=== PATIENT | male | born 1960 | race Caucasian/White ===

== ENCOUNTER 2025-02-09 17:49 | Inpatient (IN) ==
[2025-02-09 18:19] LABS: Appearance Urine Clear (Clear); Glucose Urine UA Negative (Negative)
[2025-02-09 18:24] LABS: Hematocrit (blood only) 44.0 % (42.0-52.0); Hemoglobin 15.3 g/dl (14.0-18.0); Immature Granulocytes # (auto) 0.05 K/uL (0.01-0.20); Immature Granulocytes % (auto) 0.4 %; Mean Corpuscular Hemoglobin 30.1 pg (25.0-34.0); Mean Corpuscular Volume 86.4 fL (80.0-100.0); Platelet Count 245 K/uL (130-400); RDW Standard Deviation 41.6 fL (36.4-46.3); Red Blood Count 5.09 M/uL (4.70-6.10); White Blood Count 12.46 K/ul (4.8-10.8)
[2025-02-09 18:38] LABS: Alanine Aminotransferase 30.0 U/L (7-52); Albumin Globulin Ratio 1.4 (0.9-2); Alkaline Phosphatase 72.0 U/L (34-104); Anion Gap 11.0 (3-11); Bilirubin,Total 0.8 mg/dl (0.2-1.0); Blood Urea Nitrogen 45.0 mg/dl (6-23); Calcium 9.1 mg/dl (8.6-10.3); Carbon Dioxide 25.0 mmol/L (21-32); Chloride 108.0 mmol/L (98-107); Creatinine Clr Calc Pharmacy 24.4 ml/min; Globulin 3.1 gm/dl (2.5-4.0); Glucose 121.0 mg/dl (70-99(Fasting)); Potassium 3.3 mmol/L (3.5-5.1); Sodium 144.0 mmol/L (136-145); Total Protein 7.4 gm/dl (6.0-8.3)
[2025-02-09] MEDS: LIDOCAINE 2% JELLY 5 ML TUBE EXT ONE (20:16)
--- NOTE | 2025-02-09 20:34 | Emergency Department Note ---
Impression & Plan Acute retention of urine, TELMA (acute kidney injury), Enlarged prostate ED Provider Note ED Provider Note NAME: RENEE CHILEL AGE:64 SEX: Male : 1960 ARRIVES VIA: private vehicle INFORMANT: Patient ED PROVIDER(s): Marine Nathan DO CHIEF COMPLAINT: referred here by PCP HPI: This is a 64-year-old male presents emergency room after being referred here by his PCP due to abnormal outpatient labs. Patient states he had been noticed increased difficulty urinating and saw his PCP and was started on Flomax. He states has been taking the Flomax now for 2 days and feels it is helping. He states his family doctor checked outpatient blood work and he was told that his kidney numbers were very abnormal and she was concerned that he was not emptying the bladder. He denies any sense that he cannot empty the bladder, and states in particular urination has been a lot easier since starting the Flomax. He denies any abdominal pain or distention, increased low back pain, fevers or chills, nausea or vomiting. No prior history of kidney problems. He states he was told to stop taking ibuprofen which he has and when his labs were rechecked today his kidney function hadn't improved. Patient states he does take Eliquis due to history of atrial fibrillation. No recent change in color or odor to his urine. PAST MEDICAL HISTORY:See Below PAST SURGICAL HISTORY:See Below FAMILY HISTORY:See Below SOCIAL HISTORY:See Below HOME MEDICATIONS:See Below ALLERGIES:See Below VITALS:See Below PHYSICAL EXAMINATION: GENERAL: alert, well appearing, well nourished, no distress, non-toxic EYE EXAM: normal conjunctiva, PERRL and EOM's grossly intact OROPHARYNX: no exudate, no erythema, lips, buccal mucosa, and tongue normal and mucous membranes are moist NECK: supple, no nuchal rigidity, no adenopathy, non-tender LUNGS: Clear to auscultation. Normal chest wall mechanics, no w/r/r HEART: no murmurs, S1 normal and S2 normal ABDOMEN: abdomen soft, non-tender, normo-active bowel sounds, no masses, no rebound or guarding. BACK: Back is symmetrical on inspection and there is no deformity, no midline tenderness, no CVA tenderness. SKIN: no rashes, petechiae, orbruising UPPER EXTREMITIES: upper extremities are grossly normal. FROM, nml pulses b/l. LOWER EXTREMITIES: No pitting edema. FROM, nml pulses b/l. NEURO EXAM: Normal sensorium, cranial nerves II-XII grossly intact, normal speech, no facial droop,nogross weakness of arms, no gross weakness of legs. Gross sensation intact. No ataxia. Vital Signs: reviewed and remarkable Differential Diagnosis: TELMA, ureterolithiasis, UTI, pyelo, urinary retention, medication adr, BPH, prostatitis, as well as others were considered MEDICAL DECISION MAKING: This is a 64-year-old male presents emergency department after outpatient labs showed a worsening creatinine. Patient recently started on Flomax due to presumed enlarged prostate contributing to his complaints of difficulty urinating recently. Patient's prior creatinine was 1.6, and prior to that he was normal at 1.0. Labs drawn and sent, IV established, patient monitored on telemetry. Bladder scan showed greater than 1000 mL in the patient's bladder. A catheter was placed with immediate drainage of 1800 mL of clear yellow urine. Patient sent for CT imaging as a precaution. No other obstructive uropathy noted. Patient's creatinine today significantly elevated. At this time I suspect a postobstructive uropathy. Case discussed with hospitalist team for further evaluation and management. I discussed all results with the patient and family at bedside. Vital signs stable throughout. Patient was started on gentle IV fluid hydration. Consultation(s): 2109: Discussed with Dr. Canada, [facility] hospitalist team, for additional evaluation and mgmt. ER Treatment Provided: See below 2111: Monet catheter placed and patient immediately drained 1800 mL of clear yellow urine. Diagnostics Interpreted By Me: -Cardiac Monitoring: An order was placed for continuous cardiac monitoring. The monitor shows a rate of 88 with a.fib rhythm. -Laboratory studies: As stated above and show below. -Imaging studies: ct a/p -no ureterolithiasis, bilateral hydronephrosis seen Triage Nursing Note Reviewed Prior/Outside Records Reviewed Past Med/Surg History Problem List (Updated 02/10/25 @ 16:44 by Marine Ntahan DO) Enlarged prostate (Acute) Dyslipidemia TELMA (acute kidney injury) (Acute) Acute retention of urine (Acute) Medical History HTN (hypertension) with goal to be determined Surgical History Hx of tonsillectomy Family History Brother Heart disease Social History Smoking Status: Never smoker Second Hand Exposure: No; Do You Dip or Chew Tobacco: No; Tobacco Cessation Education Requested by Patient: No Hx Alcohol Use: Yes Alcohol type: beer Hx Substance Use: No Preferred Language: Chilean Communication Ability: Effective 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: No Beliefs That Will Affect Care: None Current Living Situation: Spouse Other Information That Helps Us Care for You: No Feels Safe at Home: Yes Safety Concerns: Feels Safe At This Time Assistive Devices: Contacts and Glasses Assistive Devices Comment: contacts Allergies Allergies Allergy/AdvReac Type Severity Reaction Status Date / Time No Known Allergies Allergy Mild Verified 02/09/25 21:51 Home Meds Home Medications Medication Instructions Recorded Confirmed apixaban 5 mg tablet (Eliquis) 5 mg PO [facility] 02/09/25 02/09/25 aspirin 81 mg tablet 81 mg PO [facility] 02/09/25 02/09/25 atorvastatin 40 mg tablet 40 mg PO QA 02/09/25 02/09/25 hydrochlorothiazide 25 mg tablet 25 mg PO QA 02/09/25 02/09/25 lisinopril 20 mg tablet 20 mg PO QA 02/09/25 02/09/25 metoprolol succinate 200 mg 200 mg PO [facility] 02/09/25 02/09/25 tablet,extended release 24 hr nifedipine 30 mg tablet,extended 30 mg PO QAM 02/09/25 02/09/25 release potassium chloride 20 mEq 20 meq PO QAM 02/09/25 02/09/25 tablet,extended release(part/cryst) sildenafil 50 mg tablet 50 mg PO ONCE PRN Erectile 02/09/25 02/09/25 Dysfunction tamsulosin 0.4 mg capsule 0.4 mg PO QPM 02/09/25 02/09/25 Results & Data (ED) Vital Signs Vital Signs - 24 hr 02/09/25 17:57 02/09/25 18:33 02/09/25 20:00 Temperature 36.7 C Temperature Source Temporal Artery Scan Pulse Rate 102 H Pulse Rate [Apical] 86 74 Pulse Rhythm [Apical] Regular Regular Pulse Strength [Apical] Normal Normal Respiratory Rate 18 20 20 Respiratory Effort / Characteristics Non-Labored Spontaneous Non-Labored Spontaneous Non-Labored Spontaneous Respiratory Depth Normal Normal Normal Respiratory Pattern Regular Regular Blood Pressure 147/104 H Blood Pressure [Right Arm] 148/100 H 159/106 H Blood Pressure Mean 118 Blood Pressure Mean [Right Arm] 116 123 Blood Pressure Position [Right Arm] Lying Lying Pulse Oximetry 95 95 96 Oxygen Delivery Method Room Air Room Air Room Air Sepsis Recent Fever Within 48 Hours No Sepsis New/Unexplained Change in Mental Status No Sepsis Action Taken by Nursing No Action Required 02/09/25 20:36 Temperature Temperature Source Pulse Rate 73 Pulse Rate [Apical] Pulse Rhythm [Apical] Pulse Strength [Apical] Respiratory Rate Respiratory Effort / Characteristics Respiratory Depth Respiratory Pattern Blood Pressure Blood Pressure [Right Arm] Blood Pressure Mean Blood Pressure Mean [Right Arm] Blood Pressure Position [Right Arm] Pulse Oximetry Oxygen Delivery Method Sepsis Recent Fever Within 48 Hours Sepsis New/Unexplained Change in Mental Status Sepsis Action Taken by Nursing Laboratory Data 02/10/25 05:46 02/10/25 05:46 Lab Results 02/09/25 Range/Units 18:00 WBC 12.46 H (4.8-10.8) K/ul RBC 5.09 (4.70-6.10) M/uL Hgb 15.3 (14.0-18.0) g/dl Hct 44.0 (42.0-52.0) % MCV 86.4 (80.0-100.0) fL MCH 30.1 (25.0-34.0) pg MCHC 34.8 (32.0-36.0) g/dL RDW Std Deviation 41.6 (36.4-46.3) fL RDW Coeff of Miriam 13.2 (11.5-14.5) % Plt Count 245 (130-400) K/uL MPV 9.5 (9.4-12.4) fL Immature Gran % (Auto) 0.4 % Neut % (Auto) 69.9 % Lymph % (Auto) 17.5 % Keith % (Auto) 8.2 % Eos % (Auto) 3.0 % Baso % (Auto) 1.0 % Neut # (Auto) 8.72 H (1.40-6.50) K/uL Lymph # (Auto) 2.18 (1.20-3.40) K/uL Keith # (Auto) 1.02 H (0.11-0.59) K/uL Eos # (Auto) 0.37 (0.00-0.50) K/uL Baso # (Auto) 0.12 (0.00-0.20) K/uL Immature Gran # (Auto) 0.05 (0.01-0.20) K/uL PT 11.2 (9.0-12.0) Seconds INR 1.0 (0.9-1.1) Sodium 144 (136-145) mmol/L Potassium 3.3 L (3.5-5.1) mmol/L Chloride 108 H (98-107) mmol/L Carbon Dioxide 25 (21-32) mmol/L Anion Gap 11 (3-11) BUN 45 H (6-23) mg/dl Creatinine 3.73 H (0.6-1.4) mg/dl Est Cr Clr Drug Dosing 24.4 ml/min eGFR 17.21 BUN/Creatinine Ratio 12.1 (10-20) Glucose 121 H (70-99(Fasting)) mg/dl Calcium 9.1 (8.6-10.3) mg/dl Total Bilirubin 0.8 (0.2-1.0) mg/dl AST 22 (13-39) U/L ALT 30 (7-52) U/L Alkaline Phosphatase 72 (34-104) U/L Total Protein 7.4 (6.0-8.3) gm/dl Albumin 4.3 (3.4-5.0) gm/dl Globulin 3.1 (2.5-4.0) gm/dl Albumin/Globulin Ratio 1.4 (0.9-2) Urine Color Yellow Urine Appearance Clear (Clear) Urine pH 5.0 (4.5-7.5) Ur Specific [place] 1.007 (1.000-1.030) Urine Protein Negative (Negative) Urine Glucose (UA) Negative (Negative) Urine Ketones Negative (Negative) Urine Blood Negative (Negative) Urine Nitrite Negative (Negative) Urine Bilirubin Negative (Negative) Urine Urobilinogen Negative (Negative) Ur Leukocyte Esterase Negative (Negative) Urine Comment Administered Medications Aspirin (Aspirin 81 Mg Ectab) 81 mg PO QAM [facility] Stop: 03/12/25 08:59 Last Admin: 02/10/25 08:23 Dose: 81 mg Documented By: JETT Atorvastatin Calcium (Atorvastatin 40 Mg Tab) 40 mg PO DAILY [facility] Stop: 03/12/25 08:59 Last Admin: 02/10/25 08:23 Dose: 40 mg Documented By: JETT Lactated Ringer's (Lr) 1,000 mls @ 100 mls/hr IV .Q10H [facility] Stop: 02/10/25 22:03 Last Admin: 02/10/25 12:36 Dose: 100 mls/hr Documented By: Infusion: 02/10/25 12:22 Dose: Infused Documented By: Admin: 02/10/25 02:22 Dose: 100 mls/hr Documented By: Metoprolol Succinate (Metoprolol Succ 50mg Ext Rel Tab) [facility] [place]: 03/12/25 08:59 Last Admin: 02/10/25 08:22 Dose: 200 mg Documented By: JETT Nifedipine (Nifedipine Extended Rel 30 Mg Tabcr) 30 mg PO DAILYBB [facility] Stop: 03/12/25 06:29 Last Admin: 02/10/25 05:36 Dose: 30 mg Documented By: Discontinued Medications Heparin Sodium (Porcine) (Heparin Sod 5,000 Unit/0.5 Ml Vial) 5,000 units SQ ONE ONE Stop: 02/10/25 02:05 Last Admin: 02/10/25 02:34 Dose: 5,000 units Documented By: Sodium Chloride (Nss) 1,000 mls @ 125 mls/hr IV .Q8H [facility] Stop: 02/12/25 21:14 Last Infusion: 02/10/25 02:22 Dose: Infused Documented By: Admin: 02/09/25 21:22 Dose: 125 mls/hr Documented By: ALONSO Lidocaine HCl (Lidocaine 2% Jelly 5 Ml Tube) 5 ml EXT NOW ONE Stop: 02/09/25 20:07 Last Admin: 02/09/25 20:16 Dose: 5 ml Documented By: ALONSO Potassium Chloride (Potassium Chloride Crtab 20 Meq Tabcr) 20 meq PO ONE ONE Stop: 02/09/25 21:16 Last Admin: 02/09/25 21:11 Dose: 20 meq Documented By: NJM Discharge Plan Visit Data Chief Complaint: Urinary Symptoms Stated Complaint: RETAINING URINE ED Provider: Marine Nathan Discharge Problem: Acute retention of urine, TELMA (acute kidney injury), Enlarged prostate Patient Disposition: Admitted As Inpatient Condition: Fair Discharge Instructions Interventions: ED Discharge Assessment Last Done: 02/10/25 01:28
--- NOTE | 2025-02-09 21:00 | History & Physical Report ---
Date of Service February 09, 2025 Assessment & Plan (1) Acute retention of urine: (2) TELMA (acute kidney injury): Plan: Obstructive uropathy Presumed BPH Presented with increased urinary frequency, nocturia, decreased flow for 4 to 5 months --CT ABD: pending -- Monet catheter placed in ED, emptied 2250 Ml --Outpatient PSA 24.79; free PSA percent 14, free PSA 3.36 on 02/03/2025. -- Continue Monet catheter -- Bladder scan as needed -- Urology consulted -- Continue Flomax Acute kidney injury Likely due to above Hold lisinopril, HCTZ Avoid NSAIDs Monitor renal function Continue IV fluids Avoid nephrotoxic agents as able Consider nephrology evaluation if no improvement Monitor urine output Mild leukocytosis Likely reactive No obvious signs of infection UA within normal limits CT abdomen pending Hypokalemia Replete electrolytes as needed Monitor Hypertensive urgency Likely situational in ED H/O hypertension Continue metoprolol, nifedipine Hold lisinopril, HCTZ due to TELMA Also on tamsulosin IV hydralazine as needed Monitor blood pressure and adjust medications as needed B/L leg edema Likely secondary to renal insufficiency, NSAID use Monitor I's and O's, volume status Check resting echo Paroxysmal atrial fibrillation Continue metoprolol Hold Eliquis for possible urological intervention Rate controlled Resume anticoagulation if no plan for procedure/pending CT eval Obesity BMI 30 Final Tester lifestyle changes Squamous cell carcinoma H/O actinic keratosis Follow-up as outpatient H/O renal lesion Was scheduled to have MRI as outpatient Needs follow-up with urology Abdominal aortic aneurysm Continue beta-juana Follow-up as outpatient Prediabetes HbA1c 5.9 on 02/03/2025 Hyperlipidemia Continue Lipitor DVT Px: SCDs for now Resume Eliquis LESLEY Code Status Full Code Disposition Admit to Med/Surg History of Present Illness Chief Complaint: Abnormal Labs Primary Care Provider: Lani Gill MD Patient is a 64-year-old male with history of paroxysmal atrial fibrillation, obesity, hypertension, erectile dysfunction, dyslipidemia, prediabetes, squamous cell carcinoma, elevated PSA, renal lesion, presumed BPH, abdominal aortic aneurysm, hydronephrosis and other medical problems presents on recommendations from his PCP for abnormal labs. Patient states for the last 4 to 5 months he noticed to have increased urinary frequency, nocturia, difficulty urinating and decreased urinary flow and was started on Flomax 5 days ago by his primary care physician for presumed BPH. He states that Flomax helped but he was noted to have worsening kidney function. His creatinine is 1.6 on recent outpatient blood work which worsened to greater than 3 on outpatient blood work today and so was sent to ED for further evaluation. Patient admits to take Advil intermittently for many years for joint pain which she attributes to golfing. His primary care physician advised to quit Advil and his last dose of Advil was 5 days ago. He was recently started by PCP on Eliquis for atrial fibrillation. Monet was placed in ED and he was noted to have 2250 mL of urine output. Denies any history of chest pain, dyspnea, dizziness, cough, fever, chills, change in vision, nausea, vomiting, abdominal pain, dysuria, hematuria. Allergies Allergy/AdvReac Type Severity Reaction Status Date / Time No Known Allergies Allergy Mild Verified 02/09/25 21:51 Home Medications Medication Instructions Recorded Confirmed Type apixaban 5 mg tablet (Eliquis) 5 mg PO COUNT INCLUDES [facility] 02/09/25 02/09/25 History aspirin 81 mg tablet 81 mg PO [facility] 02/09/25 02/09/25 History atorvastatin 40 mg tablet 40 mg PO QAM 02/09/25 02/09/25 History hydrochlorothiazide 25 mg tablet 25 mg PO QA 02/09/25 02/09/25 History lisinopril 20 mg tablet 20 mg PO QAM 02/09/25 02/09/25 History metoprolol succinate 200 mg 200 mg PO QA 02/09/25 02/09/25 History tablet,extended release 24 hr nifedipine 30 mg tablet,extended 30 mg PO QAM 02/09/25 02/09/25 History release potassium chloride 20 mEq 20 meq PO QAM 02/09/25 02/09/25 History tablet,extended release(part/cryst) sildenafil 50 mg tablet 50 mg PO ONCE PRN Erectile 02/09/25 02/09/25 History Dysfunction tamsulosin 0.4 mg capsule 0.4 mg PO QPM 02/09/25 02/09/25 History Past Med/Surg History Problem List (Updated 02/09/25 @ 21:50 by Jefe Canada MD) Dyslipidemia TELMA (acute kidney injury) (Acute) Acute retention of urine (Acute) Medical History (Updated 02/09/25 @ 21:50 by Jefe Canada MD) HTN (hypertension) with goal to be determined Surgical History (Updated 02/09/25 @ 21:50 by Jefe Canada MD) Hx of tonsillectomy Family History (Updated 02/09/25 @ 21:51 by Jefe Canada MD) Brother Heart disease Social History Smoking Status: Never smoker Preferred Language: Arabic Feels Safe at Home: Yes Review of Systems Review of Systems: All systems reviewed & are unremarkable except as noted in Subjective Physical Exam Physical Exam: Physical Exam: Vitals signs as noted above General Appearance:Obese, no apparent distress Head: normocephalic, Atraumatic Eyes: normal inspection, EOMI Neck: supple, Trachea midline Respiratory/Chest: Normal breath sounds, CTA, No accessory muscle use Cardiovascular: Irregularly irregular, No murmur Abdomen/GI:Soft, Non tender, Bowel sounds present + Monet Extremities/Musculoskeletal:normal inspection, B/L 2 +edema Neurologic/Psych:AAOX3, grossly no focal neurological deficits Skin: normal color, warm Results & Data Results & Data Vital Signs (Past 12 Hours) Vital Signs Temp Pulse Pulse Resp BP BP Pulse Ox 02/09/25 18:33 86 20 148/100 H 95 02/09/25 17:57 36.7 C 102 H 18 147/104 H 95 O2 Del Method 02/09/25 18:33 Room Air 02/09/25 17:57 Room Air Laboratory Results Short CBC 02/09/25 Range/Units 18:00 WBC 12.46 H (4.8-10.8) K/ul Hgb 15.3 (14.0-18.0) g/dl Hct 44.0 (42.0-52.0) % Plt Count 245 (130-400) K/uL BMP 02/09/25 18:00 Sodium 144 Potassium 3.3 L Chloride 108 H Carbon Dioxide 25 BUN 45 H Creatinine 3.73 H Glucose 121 H Calcium 9.1 Liver Function 02/09/25 Range/Units 18:00 Total Bilirubin 0.8 (0.2-1.0) mg/dl AST 22 (13-39) U/L ALT 30 (7-52) U/L Alkaline Phosphatase 72 (34-104) U/L Albumin 4.3 (3.4-5.0) gm/dl Urine 02/09/25 Range/Units 18:00 Urine Color Yellow Urine Appearance Clear (Clear) Urine pH 5.0 (4.5-7.5) Ur Specific Fraser 1.007 (1.000-1.030) Urine Protein Negative (Negative) Urine Glucose (UA) Negative (Negative) Diagnostic Findings CT ABD:pending
[2025-02-09] MEDS: POTASSIUM CHLORIDE CRTAB 20 MEQ TABCR PO ONE (21:11)
[2025-02-09] MEDS: SODIUM CHLORIDE 0.9% 1,000 ML IV SCH (21:22)
[2025-02-09 21:47] LABS: INR 1.0 (0.9-1.1); Prothrombin Time 11.2 Seconds (9.0-12.0)
--- NOTE | 2025-02-09 23:37 | CT Scan Report ---
Exam(s): CT ABDOMEN + PELVIS Without Contrast EXAM: CT Abdomen and Pelvis Without Intravenous Contrast CLINICAL HISTORY: Reason for exam: TELMA. TECHNIQUE: Axial computed tomography images of the abdomen and pelvis without intravenous contrast. CTDI is 28.1 mGy and DLP is 1743.88 mGy-cm. Automated exposure control was utilized for the study. A dose lowering technique was utilized adhering to the principles of ALARA. COMPARISON: No relevant prior studies available. FINDINGS: Exam is limited due to lack of contrast. Lung bases: No consolidation. The heart is not enlarged but contains coronary artery calcifications. ABDOMEN: Liver: The liver is enlarged. Gallbladder and bile ducts: No calcified stones. No ductal dilation. Pancreas: The visualized portions of the pancreas, on this noncontrast study, are grossly unremarkable.. Spleen: The spleen is enlarged.. Adrenals: No mass. Kidneys and ureters: No renal calculi or are noted. There is bilateral hydronephrosis. No obstructing calculi are seen. There is a 2 cm rounded lesion in the midpole of the left kidney.. Stomach and bowel: The stomach is decompressed. There is air and stool noted in the colon. There are diverticula present on the colon. No significant inflammatory changes are seen. There is a large left inguinal hernia containing a portion of the colon.. PELVIS: Appendix: Unremarkable CT scan appearance noted the appendix.. Bladder: The urinary bladder is distended. No bladder calculi are seen. . Reproductive: The prostate gland is enlarged containing calcifications.. ABDOMEN and PELVIS: Intraperitoneal space: No free air. No significant fluid collection. Bones/joints: There are hypertrophic degenerative changes. There is a bilateral spondylolysis with a grade 1 spondylolisthesis of L4 on L5.. Soft tissues: Unremarkable. Vasculature: No abdominal aortic aneurysm. Lymph nodes: No enlarged lymph nodes. IMPRESSION: There is bilateral hydronephrosis. No obstructing calculi are seen. The urinary bladder is distended. The prostate gland is enlarged containing calcifications. A 2 cm lesion left kidney may represent a cyst. A mass cannot be excluded on this noncontrast study. Diverticulosis. There is a large left inguinal hernia containing a portion of the colon.. No evidence of bowel obstruction. Hepatomegaly. See discussion above Electronically signed by: Maykel Fuentes MD 02/09/25 23:36 PM
[2025-02-10] MEDS ORDERED: POLYETHYLENE (MIRALAX) 17 GM PACK PO PRN (02:04)
[2025-02-10] MEDS ORDERED: ACETAMINOPHEN 325 MG TAB PO PRN (02:04)
[2025-02-10] MEDS ORDERED: ONDANSETRON INJ 2 MG/ML 2 ML VIAL IV PRN (02:04)
[2025-02-10] MEDS: LACTATED RINGER'S 1,000 ML IV SCH (02:22)
[2025-02-10] MEDS: HEPARIN SOD 5,000 UNIT/0.5 ML VIAL SQ ONE (02:34)
[2025-02-10] MEDS: NIFEdipine EXTENDED REL 30 MG TABCR PO SCH (05:36)
--- NOTE | 2025-02-10 05:50 | Urology Consultation ---
Date of Consultation February 10, 2025 Assessment & Plan (1) Acute retention of urine: Patient has been admitted on the hospitalist service. From urologic perspective we recommend the following: Patient has acute kidney injury, and I suspect this is secondary to obstructive uropathy from prostamegaly which is noted on patient's CT scan. This likely resulted in the patient's hydronephrosis Monet catheter has been placed in the emergency department with an excess of 1 L of urine immediately retrieved. Would recommend maintaining patient's Monet catheter for the present time. Will monitor the patient's renal function with the Monet catheter in place which will hopefully improve. If the patient's kidney function does improve a voiding trial can be considered after several days of bladder rest Patient has been initiated on Flomax which should continue Patient was taking STEVIE inhibitor as an outpatient which is on hold due to his elevated renal function The the patient takes Eliquis as outpatient. If the patient would require any procedural invention such as a TURP would be preferable to hold this medication for several days to minimize the risk of perioperative bleeding Additional recommendations were forthcoming based on his clinical course as unfolds History of Present Illness Reason for Consultation: Obstructive uropathy Attending Physician: Jefe Canada MD History of Present Illness This is a 64-year-old male who presented to the emergency department the recommendation of his primary care team. The patient says he was getting routine blood work he was noted to have decreased kidney function and therefore sent to the emergency department. From a urologic perspective the patient does state for past several months he has noticed a weakness of his urine stream. He also feels as though he does not empty his bladder completely resulting in some urinary frequency. He specifically denies any dysuria or hematuria. He denies any fevers, shakes, or chills he denies any back or flank pain. He denies any nausea or vomiting. Since arrival to the emergency department the patient has had labs and imaging which I independent reviewed. CT scan of the abdomen pelvis showed bilateral hydronephrosis without any obstructing kidney stones. The bladder was noted to be distended and the prostate gland was noted to be enlarged. There was a 2 cm lesion the left kidney felt to potentially represent a cyst although a mass could not be excluded as the study was performed without contrast. Labs including CBC were white blood cell count was 12.4. Hemoglobin, hematocrit, and platelet count were normal. Chemistry profile showed sodium was normal with a potassium of 3.3. BUN and creatinine were 45 and 3.7. Urinalysis was negative for infection. Coagulation studies were normal. At the time of my interview the patient was resting comfortably in bed he was in no distress. Allergies Allergy/AdvReac Type Severity Reaction Status Date / Time No Known Allergies Allergy Mild Verified 02/09/25 21:51 Home Medications Medication Instructions Recorded Confirmed Type apixaban 5 mg tablet (Eliquis) 5 mg PO AMHS 02/09/25 02/09/25 History aspirin 81 mg tablet 81 mg PO QA 02/09/25 02/09/25 History atorvastatin 40 mg tablet 40 mg PO QA 02/09/25 02/09/25 History hydrochlorothiazide 25 mg tablet 25 mg PO QA 02/09/25 02/09/25 History lisinopril 20 mg tablet 20 mg PO QA 02/09/25 02/09/25 History metoprolol succinate 200 mg 200 mg PO QA 02/09/25 02/09/25 History tablet,extended release 24 hr nifedipine 30 mg tablet,extended 30 mg PO QAM 02/09/25 02/09/25 History release potassium chloride 20 mEq 20 meq PO QAM 02/09/25 02/09/25 History tablet,extended release(part/cryst) sildenafil 50 mg tablet 50 mg PO ONCE PRN Erectile 02/09/25 02/09/25 History Dysfunction tamsulosin 0.4 mg capsule 0.4 mg PO QPM 02/09/25 02/09/25 History Patient History Medical History HTN (hypertension) with goal to be determined Surgical History Hx of tonsillectomy Family History Brother Heart disease Social History Smoking Status: Never smoker Second Hand Exposure: No; Do You Dip or Chew Tobacco: No; Tobacco Cessation Education Requested by Patient: No Hx Alcohol Use: Yes Alcohol type: beer Hx Substance Use: No Preferred Language: Kiswahili Communication Ability: Effective Cheese Specialist Required: No Beliefs That Will Affect Care: None Current Living Situation: Spouse Other Information That Helps Us Care for You: No Feels Safe at Home: Yes Safety Concerns: Feels Safe At This Time Assistive Devices: Contacts and Glasses Assistive Devices Comment: contacts Review of Systems Review of Systems: All systems reviewed & are unremarkable except as noted in HPI & below Physical Exam Constitutional: WD/WN, vitals as above Eyes: no conjunctival abnormality ENMT: Ears: no hearing impairment and no external ear abnormality Mouth: no oropharynx abnormality Neck: trachea midline Respiratory: normal respiratory effort; no respiratory distress and no labored breathing Cardiovascular: Rate/Rhythm: regular rate and regular rhythm Gastrointestinal (Abdomen): Soft without distention. There is no rigidity, rebound tenderness, guarding, or pain with palpation Musculoskeletal: No calf tenderness Skin: no rashes Neurologic: moves all extremities Psychiatric: A+Ox3, euthymic affect Genitourinary: No CVA tenderness with percussion bilaterally. Monet catheter is in place draining clear yellow urine Results & Data Vital Signs (Past 12 Hours) Vital Signs Temp Pulse Pulse Pulse Resp BP BP 02/10/25 05:35 61 163/79 H 02/10/25 02:09 36.4 C L 93 H 16 154/92 H 02/10/25 00:35 73 02/09/25 23:15 73 16 02/09/25 21:43 72 18 02/09/25 20:36 73 02/09/25 20:00 74 20 02/09/25 18:33 86 20 02/09/25 17:57 36.7 C 102 H 18 147/104 H BP Pulse Ox O2 Del Method 02/10/25 05:35 02/10/25 02:09 96 Room Air 02/10/25 00:35 02/09/25 23:15 156/92 H 99 Room Air 02/09/25 21:43 160/95 H 96 Room Air 02/09/25 20:36 02/09/25 20:00 159/106 H 96 Room Air 02/09/25 18:33 148/100 H 95 Room Air 02/09/25 17:57 95 Room Air PG Care Time/CCT Total # of Minutes Spent Total Time Spent with Patient: Total time spent is greater than 50% in coordination of care (as documented) at patient's floor/unit and/or counseling patient: Coding Level of Care Code 62401 INT INP/OBS CARE MIN Diagnoses Acute retention of urine R33.8
[2025-02-10 06:13] LABS: Hematocrit (blood only) 45.3 % (42.0-52.0); Hemoglobin 15.8 g/dl (14.0-18.0); Mean Corpuscular Hemoglobin 30.8 pg (25.0-34.0); Mean Corpuscular Volume 88.3 fL (80.0-100.0); Platelet Count 242 K/uL (130-400); RDW Standard Deviation 42.0 fL (36.4-46.3); Red Blood Count 5.13 M/uL (4.70-6.10); White Blood Count 10.04 K/ul (4.8-10.8)
[2025-02-10 06:35] LABS: Anion Gap 8.0 (3-11); Blood Urea Nitrogen 36.0 mg/dl (6-23); Calcium 9.5 mg/dl (8.6-10.3); Carbon Dioxide 31.0 mmol/L (21-32); Chloride 109.0 mmol/L (98-107); Creatinine Clr Calc Pharmacy 34.4 ml/min; Glucose 101.0 mg/dl (70-99(Fasting)); Magnesium 2.0 mg/dl (1.7-2.4); Potassium 4.0 mmol/L (3.5-5.1); Sodium 148.0 mmol/L (136-145)
--- NOTE | 2025-02-10 08:05 | Hospitalist Progress Note ---
Date of Service February 10, 2025 Assessment & Plan (1) Acute retention of urine: (2) TELMA (acute kidney injury): Plan: Obstructive uropathy Presumed BPH Bilateral hydronephrosis Presented with increased urinary frequency, nocturia, decreased flow for 4 to 5 months --CT ABD: There is bilateral hydronephrosis. No obstructing calculi are seen. The urinary bladder is distended. The prostate gland is enlarged containing calcifications. A 2 cm lesion left kidney may represent a cyst. A mass cannot be excluded on this noncontrast study.Diverticulosis. There is a large left inguinal hernia containing a portion of the colon.. No evidence of bowel obstruction. Hepatomegaly. -- Monet catheter placed in ED, emptied 2250 Ml --Outpatient PSA 24.79; free PSA percent 14, free PSA 3.36 on 02/03/2025. -- Continue Monet catheter -- Bladder scan as needed -- Urology consulted -- Continue Flomax Acute kidney injury Likely due to above Hold lisinopril, HCTZ Avoid NSAIDs Monitor renal function Continue IV fluids Avoid nephrotoxic agents as able Consider nephrology evaluation if no improvement Monitor urine output Cr 2.8, improved from 3.7 Mild leukocytosis Likely reactive No obvious signs of infection UA within normal limits CT abdomen as above WBC normalized Hypokalemia Replete and Monitor Hypertensive urgency Likely situational in ED H/O hypertension Continue metoprolol, nifedipine Hold lisinopril, HCTZ due to TELMA Also on tamsulosin IV hydralazine as needed Monitor blood pressure and adjust medications as needed B/L leg edema Likely secondary to renal insufficiency, NSAID use Monitor I's and O's, volume status Check resting echo LE edema improved Paroxysmal atrial fibrillation Continue metoprolol Hold Eliquis for possible urological intervention Rate controlled Resume anticoagulation if no plan for procedure/pending CT eval Obesity BMI 30 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 Squamous cell carcinoma H/O actinic keratosis Follow-up as outpatient H/O renal lesion Was scheduled to have MRI as outpatient Needs follow-up with urology Abdominal aortic aneurysm Continue beta-juana Follow-up as outpatient Prediabetes HbA1c 5.9 on 02/03/2025 Hyperlipidemia Continue Lipitor DVT Px: SCDs for now Resume Eliquis LESLEY Code Status Full Code Disposition - Med/Surg Admission and Anticipated Discharge Date Admission Date: February 09, 2025 Subjective Pt seen in follow up obstructive uropathy Currently lying in bed in NAD Monet placed and draining clear yellow urine Pt denies any abdominal pain, also denies any fever, chills, chest pain or shortness of breath Cr improved today Urology consulted Review of Systems Review of Systems: All systems reviewed & are unremarkable except as noted in Subjective Physical Exam Physical Exam: General Appearance:Obese, no apparent distress Head: normocephalic, Atraumatic Eyes: normal inspection, EOMI Neck: supple, Trachea midline Respiratory/Chest: Normal breath sounds, CTA, No accessory muscle use Cardiovascular: Irregularly irregular, No murmur Abdomen/GI:Soft, Non tender, Bowel sounds present + Monet, clear yellow urine Extremities/Musculoskeletal:normal inspection, B/L 1 +edema, moves extremities Neurologic/Psych:AAOX3, answers appropriately, speech fluent, no facial asymmetry, moves extremities Skin: normal color, warm, dry Results & Data Results & Data Vital Signs (Past 12 Hours) Vital Signs Temp Pulse Pulse Pulse Resp BP BP 02/10/25 07:04 36.9 C 73 18 177/92 H 02/10/25 05:35 61 163/79 H 02/10/25 02:09 36.4 C L 93 H 16 154/92 H 02/10/25 00:35 73 02/09/25 23:15 73 16 156/92 H 02/09/25 21:43 72 18 160/95 H 02/09/25 20:36 73 Pulse Ox O2 Del Method 02/10/25 07:04 95 Room Air 02/10/25 05:35 02/10/25 02:09 96 Room Air 02/10/25 00:35 02/09/25 23:15 99 Room Air 02/09/25 21:43 96 Room Air 02/09/25 20:36 Laboratory Results 02/10/25 02/09/25 Range/Units 05:46 18:00 WBC 10.04 12.46 H (4.8-10.8) K/ul RBC 5.13 5.09 (4.70-6.10) M/uL Hgb 15.8 15.3 (14.0-18.0) g/dl Hct 45.3 44.0 (42.0-52.0) % MCV 88.3 86.4 (80.0-100.0) fL MCH 30.8 30.1 (25.0-34.0) pg MCHC 34.9 34.8 (32.0-36.0) g/dL RDW Std Deviation 42.0 41.6 (36.4-46.3) fL RDW Coeff of Miriam 13.0 13.2 (11.5-14.5) % Plt Count 242 245 (130-400) K/uL MPV 9.5 9.5 (9.4-12.4) fL Immature Gran % (Auto) 0.4 % Neut % (Auto) 69.9 % Lymph % (Auto) 17.5 % [place] % (Auto) 8.2 % Eos % (Auto) 3.0 % Baso % (Auto) 1.0 % Neut # (Auto) 8.72 H (1.40-6.50) K/uL Lymph # (Auto) 2.18 (1.20-3.40) K/uL [place] # (Auto) 1.02 H (0.11-0.59) K/uL Eos # (Auto) 0.37 (0.00-0.50) K/uL Baso # (Auto) 0.12 (0.00-0.20) K/uL Immature Gran # (Auto) 0.05 (0.01-0.20) K/uL PT 11.2 (9.0-12.0) Seconds INR 1.0 (0.9-1.1) Sodium 148 H 144 (136-145) mmol/L Potassium 4.0 D 3.3 L (3.5-5.1) mmol/L Chloride 109 H 108 H (98-107) mmol/L Carbon Dioxide 31 25 (21-32) mmol/L Anion Gap 8 11 (3-11) BUN 36 H 45 H (6-23) mg/dl Creatinine 2.83 H D 3.73 H (0.6-1.4) mg/dl Est Cr Clr Drug Dosing 34.4 24.4 ml/min eGFR 23.97 17.21 BUN/Creatinine Ratio 12.7 12.1 (10-20) Glucose 101 H 121 H (70-99(Fasting)) mg/dl Calcium 9.5 9.1 (8.6-10.3) mg/dl Magnesium 2.0 (1.7-2.4) mg/dl Total Bilirubin 0.8 (0.2-1.0) mg/dl AST 22 (13-39) U/L ALT 30 (7-52) U/L Alkaline Phosphatase 72 (34-104) U/L Total Protein 7.4 (6.0-8.3) gm/dl Albumin 4.3 (3.4-5.0) gm/dl Globulin 3.1 (2.5-4.0) gm/dl Albumin/Globulin Ratio 1.4 (0.9-2) Urine Color Yellow Urine Appearance Clear (Clear) Urine pH 5.0 (4.5-7.5) Ur Specific [place] 1.007 (1.000-1.030) Urine Protein Negative (Negative) Urine Glucose (UA) Negative (Negative) Urine Ketones Negative (Negative) Urine Blood Negative (Negative) Urine Nitrite Negative (Negative) Urine Bilirubin Negative (Negative) Urine Urobilinogen Negative (Negative) Ur Leukocyte Esterase Negative (Negative) Urine Comment Medications Administered Current Inpatient Medications Acetaminophen (Acetaminophen 325 Mg Tab) 650 mg PO Q4H PRN PRN Reason: pain/fever Stop: 03/12/25 02:03 Aspirin (Aspirin 81 Mg Ectab) [facility] [place]: 03/12/25 08:59 Atorvastatin Calcium (Atorvastatin 40 Mg Tab) 40 mg PO DAILY [facility] Stop: 03/12/25 08:59 Hydralazine HCl (Hydralazine Hcl 20 Mg/Ml Vial) 10 mg IV Q6H PRN PRN Reason: Hypertension SBP>180orDBP>100 Stop: 03/12/25 02:03 Lactated Ringer's (Lr) 1,000 mls @ 100 mls/hr IV .Q10H [facility] Stop: 02/10/25 22:03 Last Admin: 02/10/25 02:22 Dose: 100 mls/hr Metoprolol Succinate (Metoprolol Succ 50mg Ext Rel Tab) [facility] [place] Stop: 03/12/25 08:59 Nifedipine (Nifedipine Extended Rel 30 Mg Tabcr) 30 mg PO DAILYBB [facility] Stop: 03/12/25 06:29 Last Admin: 02/10/25 05:36 Dose: 30 mg Ondansetron HCl (Ondansetron Inj 2 Mg/Ml 2 Ml Vial) 4 mg IV Q6H PRN PRN Reason: Nausea Stop: 03/12/25 02:03 Polyethylene Glycol (Polyethylene (Miralax) 17 Gm Pack) 17 gm PO DAILY PRN PRN Reason: Constipation Stop: 03/12/25 02:03 Tamsulosin HCl (Tamsulosin Hcl 0.4 Mg Cap) 0.4 mg PO HS [facility] Stop: 03/12/25 20:59
[2025-02-10] MEDS: METOPROLOL SUCC 50MG EXT REL TAB PO SCH (08:22)
[2025-02-10] MEDS: ASPIRIN 81 MG ECTAB PO SCH (08:23)
[2025-02-10] MEDS: ATORVASTATIN 40 MG TAB PO SCH (08:23)
[2025-02-10] MEDS: TAMSULOSIN HCL 0.4 MG CAP PO SCH (20:37)
[2025-02-11 07:10] LABS: Hematocrit (blood only) 47.2 % (42.0-52.0); Hemoglobin 16.6 g/dl (14.0-18.0); Mean Corpuscular Hemoglobin 30.3 pg (25.0-34.0); Mean Corpuscular Volume 86.3 fL (80.0-100.0); Platelet Count 229 K/uL (130-400); RDW Standard Deviation 40.2 fL (36.4-46.3); Red Blood Count 5.47 M/uL (4.70-6.10); White Blood Count 13.08 K/ul (4.8-10.8)
[2025-02-11 07:24] LABS: Anion Gap 7.0 (3-11); Blood Urea Nitrogen 24.0 mg/dl (6-23); Calcium 9.0 mg/dl (8.6-10.3); Carbon Dioxide 32.0 mmol/L (21-32); Chloride 106.0 mmol/L (98-107); Creatinine Clr Calc Pharmacy 51.5 ml/min; Glucose 113.0 mg/dl (70-99(Fasting)); Magnesium 1.7 mg/dl (1.7-2.4); Potassium 3.7 mmol/L (3.5-5.1); Sodium 145.0 mmol/L (136-145)
--- NOTE | 2025-02-11 08:08 | Hospitalist Progress Note ---
Date of Service February 11, 2025 Assessment & Plan (1) Acute retention of urine: (2) TELMA (acute kidney injury): Plan: Obstructive uropathy Presumed BPH Bilateral hydronephrosis Presented with increased urinary frequency, nocturia, decreased flow for 4 to 5 months --CT ABD: There is bilateral hydronephrosis. No obstructing calculi are seen. The urinary bladder is distended. The prostate gland is enlarged containing calcifications. A 2 cm lesion left kidney may represent a cyst. A mass cannot be excluded on this noncontrast study.Diverticulosis. There is a large left inguinal hernia containing a portion of the colon.. No evidence of bowel obstruction. Hepatomegaly. -- Monet catheter placed in ED, emptied 2250 Ml --Outpatient PSA 24.79; free PSA percent 14, free PSA 3.36 on 02/03/2025. -- Continue Monet catheter -- Bladder scan as needed -- Urology consulted and following closely -- Continue Flomax Acute kidney injury Likely due to above Cr on admission 3.7 Hold lisinopril, HCTZ Avoid NSAIDs Monitor renal function Continue IV fluids Avoid nephrotoxic agents as able Consider nephrology evaluation if no improvement Monitor urine output Cr down to 1.9 Mild leukocytosis Likely reactive No obvious signs of infection UA within normal limits CT abdomen as above WBC first normalized, now slightly elevated again cont. 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 Squamous cell carcinoma H/O actinic keratosis Follow-up as outpatient H/O renal lesion Was scheduled to have MRI as outpatient Needs follow-up with urology Abdominal aortic aneurysm Continue beta-juana Follow-up as outpatient Prediabetes HbA1c 5.9 on 02/03/2025 Hyperlipidemia Continue Lipitor DVT Px: SCDs for now Resuming Eliquis Code Status Full Code Disposition - Med/Surg Admission and Anticipated Discharge Date Admission Date: February 09, 2025 Subjective Pt seen in follow up obstructive uropathy Currently lying in bed in NAD Monet placed, yesterday PM had some clots that required irrigation Pt denies any abdominal pain, also denies any fever, chills, chest pain or shortness of breath Cr improved to 1.9 Urology consulted and following closely Review of Systems Review of Systems: All systems reviewed & are unremarkable except as noted in Subjective Physical Exam Physical Exam: General Appearance:Obese, no apparent distress Head: normocephalic, Atraumatic Eyes: normal inspection, EOMI Neck: supple Respiratory/Chest: Normal breath sounds, CTA, No accessory muscle use Cardiovascular: Irregularly irregular, No murmur Abdomen/GI:Soft, Non tender, Bowel sounds present + Monet, dark, reddish urine Extremities/Musculoskeletal:normal inspection, B/L 1 +edema, moves extremities Neurologic/Psych:AAOX3, answers appropriately, speech fluent, no facial asymmetry, moves extremities Skin: normal color, warm, dry Results & Data Results & Data Vital Signs (Past 12 Hours) Vital Signs Temp Pulse Resp BP Pulse Ox O2 Del Method 02/11/25 07:22 36.6 C 80 16 163/109 H 95 Room Air 02/11/25 05:34 36.8 C 76 18 150/98 H 95 Room Air Laboratory Results 02/11/25 Range/Units 06:36 WBC 13.08 H (4.8-10.8) K/ul RBC 5.47 (4.70-6.10) M/uL Hgb 16.6 (14.0-18.0) g/dl Hct 47.2 (42.0-52.0) % MCV 86.3 (80.0-100.0) fL MCH 30.3 (25.0-34.0) pg MCHC 35.2 (32.0-36.0) g/dL RDW Std Deviation 40.2 (36.4-46.3) fL RDW Coeff of Miriam 12.8 (11.5-14.5) % Plt Count 229 (130-400) K/uL MPV 9.8 (9.4-12.4) fL Sodium 145 (136-145) mmol/L Potassium 3.7 (3.5-5.1) mmol/L Chloride 106 (98-107) mmol/L Carbon Dioxide 32 (21-32) mmol/L Anion Gap 7 (3-11) BUN 24 H (6-23) mg/dl Creatinine 1.89 H D (0.6-1.4) mg/dl Est Cr Clr Drug Dosing 51.5 ml/min eGFR 38.91 BUN/Creatinine Ratio 12.7 (10-20) Glucose 113 H (70-99(Fasting)) mg/dl Calcium 9.0 (8.6-10.3) mg/dl Phosphorus 3.4 (2.5-4.9) mg/dl Magnesium 1.7 (1.7-2.4) mg/dl Medications Administered Current Inpatient Medications Acetaminophen (Acetaminophen 325 Mg Tab) 650 mg PO Q4H PRN PRN Reason: pain/fever Stop: 03/12/25 02:03 Aspirin (Aspirin 81 Mg Ectab) 81 mg PO [facility] Stop: 03/12/25 08:59 Last Admin: 02/10/25 08:23 Dose: 81 mg Atorvastatin Calcium (Atorvastatin 40 Mg Tab) 40 mg PO DAILY [facility] Stop: 03/12/25 08:59 Last Admin: 02/10/25 08:23 Dose: 40 mg Hydralazine HCl (Hydralazine Hcl 20 Mg/Ml Vial) 10 mg IV Q6H PRN PRN Reason: Hypertension SBP>180orDBP>100 Stop: 03/12/25 02:03 Metoprolol Succinate (Metoprolol Succ 50mg Ext Rel Tab) 200 mg PO [facility] Stop: 03/12/25 08:59 Last Admin: 02/10/25 08:22 Dose: 200 mg Nifedipine (Nifedipine Extended Rel 30 Mg Tabcr) [facility]: 03/12/25 06:29 Last Admin: 02/11/25 05:36 Dose: 30 mg Ondansetron HCl (Ondansetron Inj 2 Mg/Ml 2 Ml Vial) 4 mg IV Q6H PRN PRN Reason: Nausea Stop: 03/12/25 02:03 Polyethylene Glycol (Polyethylene (Miralax) 17 Gm Pack) 17 gm PO DAILY PRN PRN Reason: Constipation Stop: 03/12/25 02:03 Tamsulosin HCl (Tamsulosin Hcl 0.4 Mg Cap) 0.4 mg PO [facility] Stop: 03/12/25 20:59 Last Admin: 02/10/25 20:37 Dose: 0.4 mg
--- NOTE | 2025-02-11 09:14 | Urology Progress Note ---
Date of Service February 11, 2025 Assessment & Plan (1) TELMA (acute kidney injury): (2) Acute retention of urine: (3) Gross hematuria: Plan 64-year-old male with urinary symptoms and worsening outpatient creatinine values who was admitted to the hospital on 02/09/2025 and had a Monet catheter placed. CT scan showed an incredibly distended bladder with mild bilateral hydronephrosis. Urinalysis was initially negative. Creatinine initially found to be 3.73 but is down trended to 1.89. Mild leukocytosis relatively stable at 13.08. Maintain Monet catheter. Hand irrigate as needed. Urine relatively clear this morning. Suspect hematuria is due to overdistention of his bladder upon presentation Continue to trend labs. Creatinine downtrending appropriately If primary team determines anticoagulation is necessary, fine to restart and we will manage hematuria through this Discussed with patient that he will likely need to be discharged with a catheter due to hydronephrosis and significant TELMA. Discussed that we will likely need to perform a workup as an outpatient to consider a bladder outlet procedure in order to get him voiding appropriately and protect his kidneys Urology to follow peripherally. A message has been sent for follow-up. Admission and Anticipated Discharge Date Admission Date: February 09, 2025 Subjective Patient developed hematuria yesterday with small amount of clot passage requiring manual irrigation. No acute issues overnight or need for irrigation. Patient otherwise feeling well. Creatinine down trended from 2.8-1.8. Leukocytosis relatively stable at 13.08. Results & Data Vital Signs (Past 12 Hours) Vital Signs Temp Pulse Resp BP Pulse Ox O2 Del Method 02/11/25 08:25 88 126/80 02/11/25 07:22 36.6 C 80 16 163/109 H 95 Room Air 02/11/25 05:34 36.8 C 76 18 150/98 H 95 Room Air PG Care Time/CCT Total # of Minutes Spent Total Time Spent with Patient: Total time spent is greater than 50% in coordination of care (as documented) at patient's floor/unit and/or counseling patient: Coding Level of Care Code 30978 SUB INP/OBS CARE 2/35MIN Diagnoses TELMA (acute kidney injury) N17.9 Acute retention of urine R33.8 Gross hematuria R31.0
[2025-02-11] MEDS: SODIUM CHLORIDE 0.9% 500 ML IV ONE (13:26)
[2025-02-11] MEDS: APIXABAN 5 MG TABLET PO SCH (20:09)
[2025-02-12 07:31] LABS: Hematocrit (blood only) 47.5 % (42.0-52.0); Hemoglobin 16.2 g/dl (14.0-18.0); Mean Corpuscular Hemoglobin 29.8 pg (25.0-34.0); Mean Corpuscular Volume 87.3 fL (80.0-100.0); Platelet Count 227 K/uL (130-400); RDW Standard Deviation 40.4 fL (36.4-46.3); Red Blood Count 5.44 M/uL (4.70-6.10); White Blood Count 12.52 K/ul (4.8-10.8)
[2025-02-12 07:48] LABS: Anion Gap 7.0 (3-11); Blood Urea Nitrogen 21.0 mg/dl (6-23); Calcium 8.5 mg/dl (8.6-10.3); Carbon Dioxide 29.0 mmol/L (21-32); Chloride 106.0 mmol/L (98-107); Creatinine Clr Calc Pharmacy 69.6 ml/min; Glucose 112.0 mg/dl (70-99(Fasting)); Magnesium 1.7 mg/dl (1.7-2.4); Potassium 3.1 mmol/L (3.5-5.1); Sodium 142.0 mmol/L (136-145)
[2025-02-12] MEDS: POTASSIUM CHLORIDE CRTAB 20 MEQ TABCR PO STA (08:09)
[2025-02-12] MEDS: MAGNESIUM OXIDE 400 MG TAB PO SCH (08:14)
--- NOTE | 2025-02-12 12:06 | Hospitalist Progress Note ---
Date of Service February 12, 2025 Assessment & Plan (1) Acute retention of urine: (2) TELMA (acute kidney injury): Plan: Obstructive uropathy Presumed BPH Bilateral hydronephrosis Presented with increased urinary frequency, nocturia, decreased flow for 4 to 5 months --CT ABD: There is bilateral hydronephrosis. No obstructing calculi are seen. The urinary bladder is distended. The prostate gland is enlarged containing calcifications. A 2 cm lesion left kidney may represent a cyst. A mass cannot be excluded on this noncontrast study.Diverticulosis. There is a large left inguinal hernia containing a portion of the colon.. No evidence of bowel obstruction. Hepatomegaly. -- Willett catheter placed in ED, emptied 2250 Ml --Outpatient PSA 24.79; free PSA percent 14, free PSA 3.36 on 02/03/2025. -- Continue Willett catheter -- Bladder scan as needed -- Urology consulted and following closely -- Continue Flomax Acute kidney injury Likely due to above Cr on admission 3.7 Hold lisinopril, HCTZ Avoid NSAIDs Monitor renal function Continue IV fluids Avoid nephrotoxic agents as able Consider nephrology evaluation if no improvement Monitor urine output Cr down to 1.3 Mild leukocytosis Likely reactive No obvious signs of infection UA within normal limits CT abdomen as above WBC first normalized, now slightly elevated again cont. to monitor Hypokalemia Replete and Monitor Hypertensive urgency Likely situational in ED H/O hypertension Continue metoprolol, nifedipine Hold lisinopril, HCTZ due to TELMA Also on tamsulosin IV hydralazine as needed Monitor blood pressure and adjust medications as needed B/L leg edema Likely secondary to renal insufficiency, NSAID use Monitor I's and O's, volume status Echo obtained - LV EF 55-60%, no LV segmental wall motion abnormalities, LV septum severely thickened at 2.0 cm, diastolic function is abnormal due to Afib LE edema improved Paroxysmal atrial fibrillation Continue metoprolol, Rate controlled Eliquis resumed Obesity BMI 30 [employer] lifestyle changes Squamous cell carcinoma H/O actinic keratosis Follow-up as outpatient H/O renal lesion Was scheduled to have MRI as outpatient Needs follow-up with urology Abdominal aortic aneurysm Continue beta-juana Follow-up as outpatient Prediabetes HbA1c 5.9 on 02/03/2025 Hyperlipidemia Continue Lipitor DVT Px: Eliquis resumed yesterday Code Status Full Code Disposition - Med/Surg Admission and Anticipated Discharge Date Admission Date: February 09, 2025 Subjective Pt seen in follow up obstructive uropathy Currently lying in bed in NAD Willett placed, had some clots that required irrigation. Pt seen by urologyGurmeet resumed -> pink urine noted in willett bag, Hgb stable at 16.2 Pt denies any abdominal pain, also denies any fever, chills, chest pain or shortness of breath Cr improved to 1.3 Review of Systems Review of Systems: All systems reviewed & are unremarkable except as noted in Subjective Physical Exam Physical Exam: General Appearance:Obese, no apparent distress Head: normocephalic, Atraumatic Eyes: normal inspection, EOMI Neck: supple Respiratory/Chest: Normal breath sounds, CTA, No accessory muscle use Cardiovascular: Irregularly irregular, No murmur Abdomen/GI:Soft, Non tender, Bowel sounds present + Willett, dark, reddish urine Extremities/Musculoskeletal:normal inspection, B/L 1 +edema, moves extremities Neurologic/Psych:AAOX3, answers appropriately, speech fluent, no facial asymmetry, moves extremities Skin: normal color, warm, dry Results & Data Results & Data Vital Signs (Past 12 Hours) Vital Signs Temp Pulse Resp BP Pulse Ox O2 Del Method 02/12/25 08:07 85 144/87 H 02/12/25 07:16 36.8 C 83 18 148/90 H 96 Room Air 02/12/25 05:42 36.8 C 54 L 18 130/83 95 Room Air Laboratory Results 02/12/25 Range/Units 07:08 WBC 12.52 H (4.8-10.8) K/ul RBC 5.44 (4.70-6.10) M/uL Hgb 16.2 (14.0-18.0) g/dl Hct 47.5 (42.0-52.0) % MCV 87.3 (80.0-100.0) fL MCH 29.8 (25.0-34.0) pg MCHC 34.1 (32.0-36.0) g/dL RDW Std Deviation 40.4 (36.4-46.3) fL RDW Coeff of Miriam 12.7 (11.5-14.5) % Plt Count 227 (130-400) K/uL MPV 9.4 (9.4-12.4) fL Sodium 142 (136-145) mmol/L Potassium 3.1 L (3.5-5.1) mmol/L Chloride 106 (98-107) mmol/L Carbon Dioxide 29 (21-32) mmol/L Anion Gap 7 (3-11) BUN 21 (6-23) mg/dl Creatinine 1.33 D (0.6-1.4) mg/dl Est Cr Clr Drug Dosing 69.6 ml/min eGFR 59.32 BUN/Creatinine Ratio 15.8 (10-20) Glucose 112 H (70-99(Fasting)) mg/dl Calcium 8.5 L (8.6-10.3) mg/dl Phosphorus 2.8 (2.5-4.9) mg/dl Magnesium 1.7 (1.7-2.4) mg/dl Medications Administered Current Inpatient Medications Acetaminophen (Acetaminophen 325 Mg Tab) 650 mg PO Q4H PRN PRN Reason: pain/fever Stop: 03/12/25 02:03 Apixaban (Apixaban 5 Mg Tablet) 5 mg PO BID [facility] Stop: 03/13/25 20:59 Last Admin: 02/12/25 08:09 Dose: 5 mg Aspirin (Aspirin 81 Mg Ectab) [facility] [place] Stop: 03/12/25 08:59 Last Admin: 02/12/25 08:10 Dose: 81 mg Atorvastatin Calcium (Atorvastatin 40 Mg Tab) 40 mg PO DAILY [facility] Stop: 03/12/25 08:59 Last Admin: 02/12/25 08:10 Dose: 40 mg Hydralazine HCl (Hydralazine Hcl 20 Mg/Ml Vial) 10 mg IV Q6H PRN PRN Reason: Hypertension SBP>180orDBP>100 Stop: 03/12/25 02:03 Magnesium Oxide (Magnesium Oxide 400 Mg Tab) 400 mg PO BID [facility] Stop: 03/14/25 08:59 Last Admin: 02/12/25 08:14 Dose: 400 mg Metoprolol Succinate (Metoprolol Succ 50mg Ext Rel Tab) 200 mg PO QAM [facility] Stop: 03/12/25 08:59 Last Admin: 02/12/25 08:08 Dose: 200 mg Nifedipine (Nifedipine Extended Rel 30 Mg Tabcr) 30 mg PO DAILYBB [facility] Stop: 03/12/25 06:29 Last Admin: 02/12/25 05:45 Dose: 30 mg Ondansetron HCl (Ondansetron Inj 2 Mg/Ml 2 Ml Vial) 4 mg IV Q6H PRN PRN Reason: Nausea Stop: 03/12/25 02:03 Polyethylene Glycol (Polyethylene (Miralax) 17 Gm Pack) 17 gm PO DAILY PRN PRN Reason: Constipation Stop: 03/12/25 02:03 Tamsulosin HCl (Tamsulosin Hcl 0.4 Mg Cap) 0.4 mg PO HS [facility] Stop: 03/12/25 20:59 Last Admin: 02/11/25 20:09 Dose: 0.4 mg
[2025-02-13 05:49] VITALS: RESP 18
[2025-02-13 07:47] LABS: Hematocrit (blood only) 47.5 % (42.0-52.0); Hemoglobin 16.7 g/dl (14.0-18.0); Mean Corpuscular Hemoglobin 30.6 pg (25.0-34.0); Mean Corpuscular Volume 87.0 fL (80.0-100.0); Platelet Count 245 K/uL (130-400); RDW Standard Deviation 40.6 fL (36.4-46.3); Red Blood Count 5.46 M/uL (4.70-6.10); White Blood Count 12.12 K/ul (4.8-10.8)
[2025-02-13 08:04] LABS: Anion Gap 5.0 (3-11); Blood Urea Nitrogen 21.0 mg/dl (6-23); Calcium 8.8 mg/dl (8.6-10.3); Carbon Dioxide 32.0 mmol/L (21-32); Chloride 105.0 mmol/L (98-107); Creatinine Clr Calc Pharmacy 74.3 ml/min; Glucose 101.0 mg/dl (70-99(Fasting)); Magnesium 1.9 mg/dl (1.7-2.4); Potassium 3.7 mmol/L (3.5-5.1); Sodium 142.0 mmol/L (136-145)
[2025-02-13 08:27] VITALS: BP 155/93; PULSE 69; TEMP 97.7; O2SAT 96
--- NOTE | 2025-02-13 12:17 | Discharge Summary ---
Date of Service February 13, 2025 Admission HPI Per Admitting Provider Patient is a 64-year-old male with history of paroxysmal atrial fibrillation, obesity, hypertension, erectile dysfunction, dyslipidemia, prediabetes, squamous cell carcinoma, elevated PSA, renal lesion, presumed BPH, abdominal aortic aneurysm, hydronephrosis and other medical problems presents on recommendations from his PCP for abnormal labs. Patient states for the last 4 to 5 months he noticed to have increased urinary frequency, nocturia, difficulty urinating and decreased urinary flow and was started on Flomax 5 days ago by his primary care physician for presumed BPH. He states that Flomax helped but he was noted to have worsening kidney function. His creatinine is 1.6 on recent outpatient blood work which worsened to greater than 3 on outpatient blood work today and so was sent to ED for further evaluation. Patient admits to take Advil intermittently for many years for joint pain which she attributes to golfing. His primary care physician advised to quit Advil and his last dose of Advil was 5 days ago. He was recently started by PCP on Eliquis for atrial fibrillation. Monet was placed in ED and he was noted to have 2250 mL of urine output. Denies any history of chest pain, dyspnea, dizziness, cough, fever, chills, change in vision, nausea, vomiting, abdominal pain, dysuria, hematuria. Admission Exam Per Admitting Provider General Appearance:Obese, no apparent distress Head: normocephalic, Atraumatic Eyes: normal inspection, EOMI Neck: supple, Trachea midline Respiratory/Chest: Normal breath sounds, CTA, No accessory muscle use Cardiovascular: Irregularly irregular, No murmur Abdomen/GI:Soft, Non tender, Bowel sounds present + Monet Extremities/Musculoskeletal:normal inspection, B/L 2 +edema Neurologic/Psych:AAOX3, grossly no focal neurological deficits Skin: normal color, warm Principal Diagnosis Obstructive uropathy, TELMA, hematuria Discharge Exam General Appearance:Obese, no apparent distress Head: normocephalic, Atraumatic Eyes: normal inspection, EOMI Neck: supple Respiratory/Chest: Normal breath sounds, CTA, No accessory muscle use Cardiovascular: Irregularly irregular, No murmur Abdomen/GI:Soft, Non tender, Bowel sounds present + Monet, dark, reddish urine Extremities/Musculoskeletal:normal inspection, B/L 1 +edema, moves extremities Neurologic/Psych:AAOX3, answers appropriately, speech fluent, no facial asymmetry, moves extremities Skin: normal color, warm, dry Discharge Data Allergies Allergy/AdvReac Type Severity Reaction Status Date / Time No Known Allergies Allergy Mild Verified 02/09/25 21:51 Consultations 02/09/25 21:10 ED Decision to Admit Stat 02/10/25 02:04 Consult Urology Routine Ordered Studies 02/09/25 19:40 CT abd pelvis wo con Stat FINDINGS: Exam is limited due to lack of contrast. Lung bases: No consolidation. The heart is not enlarged but contains coronary artery calcifications. ABDOMEN: Liver: The liver is enlarged. Gallbladder and bile ducts: No calcified stones. No ductal dilation. Pancreas: The visualized portions of the pancreas, on this noncontrast study, are grossly unremarkable.. Spleen: The spleen is enlarged.. Adrenals: No mass. Kidneys and ureters: No renal calculi or are noted. There is bilateral hydronephrosis. No obstructing calculi are seen. There is a 2 cm rounded lesion in the midpole of the left kidney.. Stomach and bowel: The stomach is decompressed. There is air and stool noted in the colon. There are diverticula present on the colon. No significant inflammatory changes are seen. There is a large left inguinal hernia containing a portion of the colon.. PELVIS: Appendix: Unremarkable CT scan appearance noted the appendix.. Bladder: The urinary bladder is distended. No bladder calculi are seen. . Reproductive: The prostate gland is enlarged containing calcifications.. ABDOMEN and PELVIS: Intraperitoneal space: No free air. No significant fluid collection. Bones/joints: There are hypertrophic degenerative changes. There is a bilateral spondylolysis with a grade 1 spondylolisthesis of L4 on L5.. Soft tissues: Unremarkable. Vasculature: No abdominal aortic aneurysm. Lymph nodes: No enlarged lymph nodes. IMPRESSION: There is bilateral hydronephrosis. No obstructing calculi are seen. The urinary bladder is distended. The prostate gland is enlarged containing calcifications. A 2 cm lesion left kidney may represent a cyst. A mass cannot be excluded on this noncontrast study. Diverticulosis. There is a large left inguinal hernia containing a portion of the colon.. No evidence of bowel obstruction. Hepatomegaly. See discussion above Hospital Course (1) Acute retention of urine: (2) TELMA (acute kidney injury): Obstructive uropathy Presumed BPH Bilateral hydronephrosis Presented with increased urinary frequency, nocturia, decreased flow for 4 to 5 months --CT ABD: There is bilateral hydronephrosis. No obstructing calculi are seen. The urinary bladder is distended. The prostate gland is enlarged containing calcifications. A 2 cm lesion left kidney may represent a cyst. A mass cannot be excluded on this noncontrast study.Diverticulosis. There is a large left inguinal hernia containing a portion of the colon.. No evidence of bowel obstruction. Hepatomegaly. -- Monet catheter placed in ED, emptied 2250 Ml --Outpatient PSA 24.79; free PSA percent 14, free PSA 3.36 on 02/03/2025. -- Continue Monet catheter -- Bladder scan as needed -- Urology consulted and following closely. Pt developed some hematuria, likely from overdistention of bladder. Now hematuria improved even after resuming eliquis and Hgb stable. -- Continue Flomax -- Plan to follow up w/ urology as outpt. Pt will be discharged with Monet Acute kidney injury - resolved Likely due to above Cr on admission 3.7 Hold lisinopril, HCTZ -> ok to resume on Dc as telma resolved Avoid NSAIDs Monitor renal function Continue IV fluids Avoid nephrotoxic agents as able Consider nephrology evaluation if no improvement Monitor urine output Cr down to 1.23 Mild leukocytosis Likely reactive No obvious signs of infection UA within normal limits CT abdomen as above WBC first normalized, now slightly elevated again at 12K cont. to monitor Hypokalemia Replete and Monitor Hypertensive urgency Likely situational in ED H/O hypertension Continue metoprolol, nifedipine Hold lisinopril, HCTZ due to TELMA -> can resume on DC Also on tamsulosin IV hydralazine as needed while inpt Monitor blood pressure and adjust medications as needed B/L leg edema Likely secondary to renal insufficiency, NSAID use Monitor I's and O's, volume status Echo obtained - LV EF 55-60%, no LV segmental wall motion abnormalities, LV septum severely thickened at 2.0 cm, diastolic function is abnormal due to Afib LE edema improved Paroxysmal atrial fibrillation Continue metoprolol, Rate controlled Eliquis resumed Obesity BMI 30 [employer] lifestyle changes Squamous cell carcinoma H/O actinic keratosis Follow-up as outpatient H/O renal lesion Was scheduled to have MRI as outpatient Needs follow-up with urology Abdominal aortic aneurysm Continue beta-juana Follow-up as outpatient Inguinal hernia - noted on CT - pt reports he is aware having it for some time - plans to follow up w/ pcp and gen. surgery Prediabetes HbA1c 5.9 on 02/03/2025 Hyperlipidemia Continue Lipitor Total Time Total Time Spent Total Time Spent (In Minutes): 40 Discharge Plan Discharge Items Patient Disposition: Home - Self-Care Reason For Visit: ACUTE KIDNEY INJURY Discharge Diagnosis: Obstructive uropathy, TELMA, hematuria Condition on Discharge: Fair Activity: Per Instructions section Non-emergency contact: Primary Care Provider and Urologist Call non-emergency contact if: you have any medication questions and your symptoms worsen Follow-up/Referrals: Lani Gill MD [Primary Care Provider] - (Date & Time 02/20/2025 5:00 PM Provider: Lani Gill MD [facility] ) Diet: Heart Healthy Addtl Attending Provider Instructions: Follow up with your primary care physician, and urologist. The appointment with your primary care doctor was scheduled for you for February. You will be contacted about your appointment with urology. Make sure to stay well hydrated. Also recommend follow up / surgery referral for your inguinal hernia. Pending Studies at Discharge: No Stand-Alone Forms: My [facility] [place], Smoking Cessation Medications and DC Order Prescriptions: Continued tamsulosin 0.4 mg capsule 0.4 mg PO QPM Eliquis 5 mg tablet 5 mg PO [facility] atorvastatin 40 mg tablet 40 mg PO QAM metoprolol succinate 200 mg tablet extended release 24 hr 200 mg PO QAM potassium chloride 20 mEq tablet,ER particles/crystals 20 meq PO QAM lisinopril 20 mg tablet 20 mg PO QAM nifedipine 30 mg tablet extended release 30 mg PO QAM Rx Instructions: take on an empty stomach hydrochlorothiazide 25 mg tablet 25 mg PO QAM aspirin 81 mg Tablet 81 mg PO QAM sildenafil 50 mg Tablet 50 mg PO ONCE PRN (Reason: Erectile Dysfunction) Rx Instructions: administer 30 minutes to 4 hours before activity Discharge Orders: Discharge Order (Routine); Ordered 02/13/25 Ordered By: Brian Espana Admission Data Admit Date/Time: 02/09/25 21:14 Attending Provider: Brian Espana Admit Provider: Jefe Canada Primary Care Provider: Lani Gill Other Providers: Jefe Canada; Balbir Vazquez; Stacie Yeboah; Kurt Meza; Constance Napoles; Alex Schultz; Elise Nobles; Destin Brunson; Matt Tillman; Laz Torres; Brett Salguero
== END 2025-02-13 15:10 | disposition home or self-care (01) | DRG 684 ==
LOC: ED 17:49 → 3N 21:14 → SUATTDRO 21:14 → 3N 02-10 01:28